=== PATIENT | male | born 1980 | race Two or more races ===

== ENCOUNTER 2016-09-14 19:11 | Emergency (ER) | payer OTHER ==
[~2016-09-14] VITALS: Ht 175.3 cm; Wt 90.7 kg
--- NOTE | ~2016-09-14 | CR181 ---
[facility] A Service of [facility] RADIOLOGY TEXT RESULTS PATIENT: ECTOR AMBRIZ LOCATION: [facility] : 76 UNIT #: [id number] AGE: [address]: Terrance Mcfarlane MD SEX: M ORDER DR: [id number] [facility] [address] [place], [place] [address] [id number] E MR#: [id number] Acc #: [id number] NAME: ECTOR AMBRIZ : 1980 SEX: M STUDY DATE/TIME: 09/14/2016 22:12 UNIT: [facility] ROOM: STUDY DESCRIPTION: CR Lumbar Spine 2 or 3 Views Attending Physician: Juan Pablo Mcfarlane M.D. Ordering Physician: Ed Santos Hickman M.D. Primary Care Physician: No Primary Care Physician MEDICAL IMAGING REPORT This report is preliminary unless electronic signature is present EXAM Lumbar spine on 09/15 2211. INDICATIONS Low back pain after a fall 4 days ago. FINDINGS AP and lateral projections of the lumbar segment show good mineralization of both anterior and posterior elements. They are all anatomically normal without indication of fracture, dislocation, or malignant change of a sclerotic or lytic type. There is no congenital defect noted. The sacroiliac joints are normal. IMPRESSION Normal lumbar spine. Dictated by... Sam Ortiz Jr., M.D. THIS IS AN ELECTRONICALLY VERIFIED REPORT Sam Ortiz Jr., M.D. at 09/15/2016 9:33 PM JOSÉ/gissel TD: 09/15/2016 08:57 JOB #: [id number] MEDICAL IMAGING REPORT Page 1 of 1 COPY
[~2016-09-14 19:11] MED LIST: BACTRIM DS TABL1 TA1 PO; CIPRO750 MG PO; FLAGYL250 M1 PO; PANTOPRAZOLE SO20 MG; PREPOPIK POWDE1 EACH PO; PRILOSEC; VICODIN 5/1 TAB 5/50 PO; VOLTAREN75 MG PO
== END 2016-09-14 23:54 | disposition home or self-care (01) ==
LOC: CED 19:11
DX: S39.012A Strain of muscle, fascia and tendon of lower back, initial encounter (principal); Q05.9 Spina bifida, unspecified; W01.0XXA Fall on same level from slipping, tripping and stumbling without subsequent striking against object, initial encounter; Y92.69 Other specified industrial and construction area as the place of occurrence of the external cause; Y99.0 Civilian activity done for income or pay
CPT/HCPCS: 72100; 96372; 99283; J1885